=== PATIENT | female | born 1980 | race Caucasian/White ===

== ENCOUNTER 2024-11-03 07:50 | Outpatient (CLI) | payer OTHER, SELFPAY ==
--- NOTE | ~2024-11-03 | US_ITS ---
EXAMINATION: US right upper quadrant DATE: 11/03/2024 08:16 INDICATION: Elevated liver enzymes TECHNIQUE: Multiple grayscale and Doppler ultrasound images of the abdomen were obtained. COMPARISON: None FINDINGS: The pancreatic head and body are normal in appearance. The pancreatic tail is not visualized. Liver has normal contour, with a smooth surface. There is increased parenchymal echogenicity and coarsened echotexture consistent with diffuse hepatic steatosis. No liver lesion identified. No intrahepatic b iliary duct dilation suspected. Portal venous flow was seen in the hepatopetal, normal direction and has normal Doppler waveform. The aorta and inferior vena cava are normal. The gallbladder is normal i n appearance. There is no cholelithiasis. The common bile duct measures 3 mm, which is normal. Sonog raphic Kuo sign was reported as negative by the area field manager. Right kidney measures 11.5 cm in marjan th and demonstrates normal contour and echogenicity with no hydronephrosis. IMPRESSION: 1. Diffuse hepatic steatosis. Reviewed, dictated and finalized at location A. [facility] ROOM TEACHER
== END 2024-11-03 07:51 | disposition home or self-care (01) ==
PROVIDERS: PCP Internal Medicine; Visit Provider Internal Medicine
DX: R74.01 Elevation of levels of liver transaminase levels (principal); K76.0 Fatty (change of) liver, not elsewhere classified
CPT/HCPCS: 76705

== ENCOUNTER 2025-01-10 16:44 | Outpatient (CLI) | payer OTHER, SELFPAY ==
[2025-01-10 17:51] LABS: Anion Gap 9 mmol/L (4-12); Blood Urea Nitrogen 15 mg/dL (7-17); Calcium 9.6 mg/dL (8.4-10.2); Carbon Dioxide 30 mmol/L (22-30); Chloride 99 mmol/L (98-107); Estimated Glomerular Filt Rate > 60; Glucose 126 mg/dL (65-110); Potassium 4.2 mmol/L (3.4-5.0); Sodium 138 mmol/L (137-145)
--- OUTSIDE RECORDS SUMMARY | 2025-01-10 18:48 | XMS_ITS | Clinical Summary ---
Author Organization [facility] Address [address] [place] [id number] Care Team Providers Care Cardiology Rn Name Role Phone Unavailable Primary Care Provider Unavailabl e Social History Tobacco Use Types Packs/Day Years Used Date Smoking Tobacco: Never Assessed Comments Unknown Sex and Gender Information Value Date Recorded Sex Assigned at Not on file Legal Sex Female 7:22 AM CDT Gender Identity Not on file Sexual Orientation Not on file Plan of Treatment Health Maintenance Due Date Last Done Comments Cervical Cancer Screening Pa p Smear (Age 30 to 64) Every 3 Years 1982 Annual Physical 1985 Hepatitis C 2000 DTaP, Tdap and Td Vaccines ( 1 - Tdap) 2001 Hepatitis B Vaccines (1 of 3 - 19+ 3-dose series) 2001 Cervical Cancer Screening Pa p with HPV Testing (Age 30 to 64) Every 5 Years 2012 Cervical Cancer Screening with HPV 2012 Mammogram Screening 2022 COVID-19 Vaccine (2023-2 5 season) 2024 Influenza Adult (#1) 2024 HPV Vaccines Aged Out No longer eligi ble based on patient's age to complete this topic Meningococcal B Vaccine Aged Out No l onger eligible based on patient's age to complete this topic Meningococcal Vaccine Aged Out No alex kaur eligible based on patient's age to complete this topic Pneumococcal Vaccine: Pediat rics (0 to 5 Years) and At-Risk Patients (6 to 64 Years) Aged Out No longer eligible b ased on patient's age to complete this topic RSV Immunizations Under 20 Months Aged Out No longer eligible based on patient's age to complete this topic
--- OUTSIDE RECORDS SUMMARY | 2025-01-10 18:48 | XMS_ITS | Data Portability ---
Author Organization [place] [facility], Main Office Address [address] [place] [address] Care Team Providers Care Slurry Mixer Name Role Phone LAI HAMPTON Primary Care Provider AQUILES THOMAS General Surgeon Assessment Encounter Date Assessment Date Assessment LastModified by Organization Details LastModified Time 07/05/2024 07/05/2024 Skin lesion of R nipple lesion. Excision today. Tolerated well. Pathology pending. [email or web address] Not available 07/05/2024 11:16:27 10/24/2024 10/24/2024 07/05/2024: [facility], labs not reported till OV 10/24/2024 Chol 217, TG 172, LDL 129 Gluc 189, AST/ALT 33/44 HCT 47.9 VIT D 19L Not available 10/24/2024 11:21:19 11/23/2024 11/23/2024 07/05/2024: [facility], labs not reported till OV 10/24/2024 Chol 217, TG 172, LDL 129 Gluc 189, AST/ALT 33/44 HCT 47.9 VIT D 19L 11/07/2024: [facility]GT: 15N Hep panel: Neg A1C 8.3 VIT D 26 HCT 45.5 Gluc 199 TG 196l LDL 102 Not available 11/23/2024 14:33:31 Plan of Treatment Reminders Order Date Submit Date Provider Last Modified By Organization Details Last Modified Time Details Appointments Follow Up 15 2024 02:15P Thaddeus garza MD Not available Not available Not available Lab vitamin D, 25-hydrox y, total, serum 2024 025 [employer] [facility], [address] [place], [address], 11/24/2024 14:35:22 HbA1c (hemoglob in A1c), blood 2024 025 [email or web address] [facility], [facility] [place], [address], 01/05/2025 11:16:12 microalbu min, urine 2024 025 [email or web address] [facility], [facility] [place], [address], 01/05/2025 11:16:13 lipid panel, serum 2024 025 [employer] [facility], [address] [place] [address] [place], [address], 11/24/2024 14:35:22 CMP, serum or plasma 2024 025 [employer] [facility], [facility] [place], [address], 11/24/2024 14:35:22 CBC w/ auto diff 2024 025 [employer] [address] [place], [address], 11/24/2024 14:35:22 TSH + free T4, serum 2024 025 [email or web address] [facility], [facility] [place], [address], 01/05/2025 11:16:13 vitamin D, 25-hydrox y, total, serum 2023 024 VINICIO Not available 11/14/2024 15:45:36 HbA1c (hemoglob in A1c), blood 2023 024 VINICIO Not available 11/14/2024 15:45:37 microalbu min, urine 2023 024 [email or web address] Not available 11/25/2024 15:47:00 lipid panel, serum 2023 024 VINICIO Not available 11/14/2024 15:45:27 CMP, serum or plasma 2023 024 VINICIO Not available 11/14/2024 15:45:32 CBC w/ auto diff 2023 024 VINICIO Not available 11/14/2024 15:45:33 TSH + free T4, serum 2023 024 [email or web address] Not available 11/25/2024 15:47:00 gamma-glu tamyl transfera se (ggt), serum 2023 024 VINICIO Not available 11/14/2024 15:45:31 hepatitis panel (A+B+C), acute, serum 2023 024 VINICIO Not available 11/14/2024 15:45:30 lipid panel, serum 2023 024 [email or web address] Not available 08/25/2024 09:22:48 CMP, serum or plasma 2023 024 [email or web address] Not available 08/25/2024 09:22:59 TSH, serum or plasma 2023 024 VINICIO Not available 11/14/2024 15:45:35 CBC w/ auto diff 2023 024 [email or web address] Not available 08/25/2024 09:23:45 T4, free, serum 2023 024 VINICIO Not available 11/14/2024 15:45:34 vitamin D, 25-hydrox y, total, serum 2023 024 [email or web address] Not available 08/25/2024 09:22:38 Referral obstetric jennifer and gynecolog ist referral - Please call patient to schedule. 2024 025 [email or web address] Albina Montenegro MD, [address], [address], [place], [address], 11/23/2024 17:00:06 podiatris t referral - Please call patient to schedule. 2024 025 [email or web address] Darian German DPM, [address], [place], [address], 11/23/2024 17:00:06 hepatolog ist referral 2024 025 [email or web address] Dharmesh Lugo MD, [address] [place], [address], 11/23/2024 17:00:07 obstetric jennifer and gynecolog ist referral - Please call patient to schedule. 2023 024 LISA Montenegro MD, [address] [facility] [address], [place], [address], 10/24/2024 17:21:16 podiatris t referral - Please call patient to schedule. 2023 024 [email or web address] Darian German DPThaddeus, [address], [place], [address], 10/24/2024 17:11:01 obstetric jennifer and gynecolog ist referral 2023 024 [email or web address] Albina Montenegro MD, [address], [place], [address], 10/24/2024 17:03:17 general surgeon referral 2023 024 [email or web address] Aquiles Benítez MD, [address], [place], [address], 07/28/2024 15:25:47 Procedures None recorded. Surgeries None recorded. Imaging US, liver - Please call patient to schedule. 2023 024 [facility], [address], [place], [address], 11/03/2024 09:35:06 MAMMO, screening , bilateral 2023 024 VINICIO Not available 08/23/2024 10:38:16 Medication Orders cholecalc iferol (vitamin D3) 1,250 mcg (50,000 unit) capsule 2024 025 [id number], [address], [place], [address], 11/23/2024 14:34:56 metformin 500 mg tablet 2024 025 [id number], [address], [place], [address], 11/23/2024 14:34:56 lisinopri l 5 mg tablet 2024 025 [id number], [address], [place], [address], 11/23/2024 14:34:56 Lipitor 40 mg tablet 2024 025 [id number], [address], [place], [address], 11/23/2024 14:34:56 cholecalc iferol (vitamin D3) 1,250 mcg (50,000 unit) capsule 2023 024 [id number], [address], [place], [address], 10/24/2024 11:19:44 Patient TargetsNo targets recorded. Patient Instructions Encounter Date Encounter Id Patient Instructions Last Modified By Organization Details Last Modified Time 10/24/2024 [id number] diabetic eye exam* [email or web address] Not available 10/24/2024 11:17:49 11/23/2024 [id number] diabetic eye exam* [email or web address] Not available 11/23/2024 14:45:30 Reason for Referral Hardware Design Engineer And Gynecologis t Referral for Gynecologic examination Referring Physician: Lai Hampton Internal [facility], Encounter Date: 06/27/2024 General Surgeon Referral for Skin tag Referring Physician: Lai Hampton [facility], Encounter Date: 06/27/2024 Hardware Design Engineer And Gynecologis t Referral for Gynecologic examination Please call patient to schedule. Referring Physician: Lai Hampton Internal [facility], Encounter Date: 10/24/2024 Program Management Intern Referral for Type 2 diabetes mellitus without complication Please call patient to schedule. Referring Physician: Lai Hampton Internal Medicine, Encounter Date: 10/24/2024 Hardware Design Engineer And Gynecologis t Referral for Gynecologic examination Please call patient to schedule. Referring Physician: Lai Hampton Internal Medicine, Encounter Date: 11/23/2024 Program Management Intern Referral for Type 2 diabetes mellitus without complication Please call patient to schedule. Referring Physician: Lai Hampton Internal [facility], Encounter Date: 11/23/2024 Skin Carver Referral for Li renetta enzymes level above reference range Referring Physician: Lai Hampton Internal [facility], Encounter Date: 11/23/2024 Results Created Date Observation Date Name Description Value Unit Range Abnormal Flag Note LastModifiedBy Organization Detail LastModifiedTime 08/23/2008/23/2024 MAMMO , scree ilda, bilat eral No observ [facility]ion [facility] ed[facility] [address] , [place], [address], 08/23/2024 10:38:16 11/03/20 24 11/03/2024 US, liver No observ ation record ed. [facility] [address], [place], [address], 11/03/2024 09:35:06 Result Notes None recorded. Problems Name Problem SNOMED Code Status Onset Date Resolution Date Notes Provider Name and Address Organization Details Recorded Time Vitamin D deficiency 55099739 Active 2023 Lai garza MD [address], [place], [address], [facility] 4 10:46:40 Skin tag 282568617 Active 2023 Lai garza MD [address], [place], [address], [facility] 11:01:09 Skin lesion 70963120 Active 2023 Aquiles doss MD [address] [facility], [place], [address], [facility] 14:55:00 Hyperlipidemia 44139109 Active 2023 Lai garza MD [address], [place], [address], [facility] 11:15:47 Type 2 diabetes mellitus without complication 666453081 Active 2023 Lai garza MD [address], [place], [address], [facility] 11:15:56 Liver enzymes level above reference range 276957216 Active 2023 Lai garza MD [address], [place], [address], [facility] 11:16:19 Problem Notes None recorded. Procedures Surgical History Date Name Laterality Status Provider Name and Address Organization Details Recorded Time Excision Cyst Multilayer completed Aquiles kiser MD [address], [place], [address], [employer] 07/05/2024 11:16:15 Hip surgery completed MARIA E Galindo [facility] 11/23/2024 14:06:24 Imaging Results Imaging Date Name Status LastModified by Organiz ation Details LastModified Time 08/23/2024 MAMMO, screening, bilateral active VINICIO Marina [address] , [place], [address], 08/23/2024 10:38:16 11/03/2024 US, liver active [facility] [address], [place], [address], 11/03/2024 09:35:06 Procedure Notes None recorded. Medical Equipment None Reported. Allergies No known drug allergies Medications Name Sig Start Date Stop Date Status Note LastModified by Organization Details LastModified Time atorvastatin 40 mg tablet TAKE 1 TABLET BY MOUTH EVERY DAY active Not Available Not Available No t Available metformin 500 mg tablet TAKE 1 TABLET TWICE A DAY BY ORAL ROUTE FOR 90 DAYS. active Not Available Not Available No t Available lisinopril 5 mg tablet TAKE 1 TABLET BY MOUTH EVERY DAY active Not Available Not Available No t Available cholecalciferol (vitamin D3) 1,250 mcg (50,000 unit) capsule TAKE 1 CAPSULE BY MOUTH EVERY WEEK active Not Available Not Available No t Available Vitals Date Recorded Body height Body mass index (BMI) Body weight Body temperature Heart rate Oxygen saturation Oxygen saturation in Arterial blood by Pulse oximetry Systolic blood pressure Diastolic blood pressure Provider Name and Address Organization Details Last Updated DateTime 4 167.64 cm 47.5 kg/m2 739842. 16 g 98.7 [degF] 104 /min 98 % 98 % 158 mm[Hg] 88 mm[Hg] Anastacia Parr MA [facility] 4 10:42:39 Date Recorded Body height Body mass index (BMI) Body weight Heart rate Body temperature Respiratory rate Oxygen saturation Oxygen saturation in Arterial blood by Pulse oximetry Systolic blood pressure Diastolic blood pressure Provider Name and Address Organization Details Last Updated DateTime 4 167.64 cm 47.5 kg/m2 200551. 16 g 100 /min 97.6 [degF] 14 /min 98 % 98 % 120 mm[Hg] 76 mm[Hg] Kateryna Wiggins [employer] [facility] [employer] 4 10:25:26 Date Recorded Body height Body mass index (BMI) Body weight Body temperature Heart rate Systolic blood pressure Diastolic blood pressure Provider Name and Address Organization Details Last Updated DateTime 4 167.64 cm 45 kg/m2 528748. 27 g 97.8 [degF] 90 /min 146 mm[Hg] 90 mm[Hg] Susannah Li Kathy [facility] [employer] [facility] 4 10:43:45 Date Recorded Body height Body mass index (BMI) Body weight Body temperature Heart rate Systolic blood pressure Diastolic blood pressure Provider Name and Address Organization Details Last Updated DateTime 5 167.64 cm 45.2 kg/m2 384113. 86 g 97.6 [degF] 90 /min 156 mm[Hg] 98 mm[Hg] Susannah Li Kathy [facility] [employer] [facility] 5 14:08:40 Social History Question Answer Notes LastModified by Organizat ion Details LastModified Time Tobacco Smoking Status Never Smoker MARGARET Givens, [facility] [employer] [facility] [employer] [facility] 06/27/2024 10:37:48 Do You Have An Advance Directive? No Information not available 10/24/2024 What Is Your Level Of Alcohol Consumption? Occasional Information not available 06/27/2024 What Is Your Level Of Caffeine Consumption? Moderate Information not available 06/27/2024 In The 14 Days Before Symptom Onset, Have You Had Close Contact With A Laboratory-confi rmed COVID-19 While That Case Was Ill? No Information not available 06/27/2024 In The 14 Days Before Symptom Onset, Have You Had Close Contact With A Person Who Is Under Investigation For COVID-19 While That Person Was Ill? No Information not available 06/27/2024 Are You Currently Employed? Yes Information not available 06/27/2024 What Type Of Diet Are You Following? REGULAR Information not available 06/27/2024 What Is Your Occupation? [employer] Information not available 06/27/2024 Have There Been Any Changes To Your Family Or Social Situation? No Information not available 06/27/2024 Do You Use Insect Repellent Routinely? No Information not available 06/27/2024 Where Do You Live? Apartment Information not available 06/27/2024 Do You Have A Medical Power Of Hop Worker? No Information not available 10/24/2024 What Was The Date Of Your Most Recent Tobacco Screening? 11/23/2024 Information not available 11/23/2024 How Many Children Do You Have? 0 Information not available 06/27/2024 Do You Have Any Pets? No Information not available 06/27/2024 What Is Your Relationship Status? Single Information not available 06/27/2024 Do You Use Your Seat Belt Or Car Seat Routinely? Yes Information not available 06/27/2024 Do You Have Smoke And Carbon Monoxide Detectors In Your Home? Yes Information not available 06/27/2024 Are You Passively Exposed To Smoke? No Information not available 06/27/2024 Are There Any Smokers In Your House? No Information not available 06/27/2024 Do You Feel Stressed (tense, Restless, Nervous, Or Anxious, Or Unable To Sleep At Night)? [id number] Information not available 06/27/2024 Do You Use Any Illicit Or Recreational Drugs? Yes Occasional Ediable Information not available 06/27/2024 Do You Use Sunscreen Routinely? Yes Information not available 06/27/2024 Has Tobacco Cessation Counseling Been Provided? No N/a Information not available 10/24/2024 Have You Recently Traveled Abroad? No Information not available 10/24/2024 Have You Used IV Drugs? No Information not available 06/27/2024 Do You Have Any Dietary Restrictions? No Information not available 06/27/2024 Do You Or Have You Ever Used Any Other Forms Of Tobacco Or Nicotine? No Information not available 06/27/2024 Sex: Female Functional Status Question Answer Note LastModified by Organization D etails LastModified Time What is your exercise level? Moderate Information not available 06/27/2024 Mental Status None recorded. Family History Relationship Description Onset Age of this Age Resolved Age Notes LastModified by Organization Details LastModified Time Father Diabetes mellitus [email or web address] Not available 2023 10:36:48 Paternal Grandfather Diabetes mellitus [email or web address] Not available 2023 10:36:48 Medical History Condition Response OBESITY Y Gynecological History Statement/Question Response How many live births 0 Date of Last Pap Current Control Method None Date of Last Colonoscopy Date of Last Mammogram Date of LMP 06/16/2024 Obstetrics History GPAL:G 0 P 0 0 0 0 Type Value Multiple Births 0 Full Term 0 Induced 0 Spontaneous 0 Premature 0 Living 0 Ectopics 0 Total 0 Immunizations Vaccine Type Date Status Note Provider Nam e and Address Organization Details Recorded Time COVID-19, mRNA, LNP-S, PF, 30 mcg/0.3 mL dose 01/13/2021 completed Susannah Li RMA josé luis, [facility] 06/27/2024 10:56:00 COVID-19, mRNA, LNP-S, PF, 30 mcg/0.3 mL dose 02/03/2021 [facility] 06/27/2024 10:56:00 COVID-19, mRNA, LNP-S, PF, 30 mcg/0.3 mL dose 09/28/2021 completed Susannah Li RMA null, [facility] 06/27/2024 10:56:00 COVID-19, mRNA, LNP-S, bivalent, PF, 30 mcg/0.3 mL dose 07/28/2022 completed Susannah Li RMA null, [facility] 06/27/2024 10:56:00 COVID-19, mRNA, LNP-S, PF, fernanda-sucrose, 30 mcg/0.3 mL 08/24/2023 completed Susannah Li RMA null, [facility] 06/27/2024 10:56:00 Influenza, MDCK, trivalent, PF 08/02/2024 completed Susannah Li RMA null, [facility] 09/02/2024 12:45:48 COVID-19, mRNA, LNP-S, bivalent, PF, 30 mcg/0.3 mL dose 07/25/2024 completed MARIA E Galindo null, [place] [facility] [employer] [facility] 10/24/2024 10:35:21 Tdap 06/27/2024 completed Lai Hampton MD [address], [place], [address], [facility] [employer] [facility] 06/27/2024 14:16:09 Past Encounters Encounter ID Performer Location Encounter Start Date Encounter Closed Date Diagnosis/Indication Diagnosis SNOMED-CT Code Diagnosis ICD10 Code Diagnosis Note [id number] Lai copeland MD [facility] Internal Med Jaron yolanda [address] [place] [address] 06/27/2024 10:18:25 06/27/2024 11:05:18 Screening - NAD 118291986 Z13.9 Mammogram: Get this done PAP: Get this Get yearly flu shotUTD on Tdap 06/27/2024 Get COVID 19 vaccine and its boosters RTC in 3 months, do labs, ER if worse, she is very appreciati ve to this plan of care Hyperlipid emia screening 853144184 Z13.220 Vitamin D deficiency 347 14671 E55.9 Screening mammography 24 968249 Z12.31 Gynecologi c examination 41417215 Z01.419 Skin tag 544653477 L91.8 Skin tag noted on the R areolaWill refer to Dr Walker Administra tion of diphtheria, pertussis, and tetanus vaccine 891011363 Z23 [id number] Aquiles castanon MD [facility] [place] [address] [place] [address] 07/05/2024 09:40:14 07/05/2024 11:24:33 Skin lesion 84456861 L98.9 Right Nipple [id number] Lai copeland MD [facility] [place] [facility] [address] [place] [address] 10/24/2024 10:14:47 10/24/2024 11:19:19 Screening - NAD 383605584 Z13.9 Mammogram: 08/23/2024 : Neg PAP: Get this Get yearly flu shotUTD on Tdap 06/27/2024 Get COVID 19 vaccine and its boosters RTC in 1 months, do labs, ER if worse, she is very appreciati ve to this plan of care Vitamin D deficiency 347 80269 E55.9 Get on vit dRepeat the labs Gynecologi c examination 98659277 Z01.419 Skin tag 250051725 L91.8 Skin tag noted on the R areolaWill refer to Dr Walker OV 10/24/2024 :Dr Harrison 07/05/2024 , s/p bx 07/06/2024 Hyperlipidemia 85106843 E78.5 Not on any meds, will do labs Type 2 krista betes mellitus without complication 218566156 E11.9 Not on any medsWill repeat the labs Liver enzy mes level above reference range 083174504 R74.01 [id number] Lai copeland MD [facility] Primary Care [facility] [address] [place] [address] 11/23/2024 13:55:14 11/23/2024 14:37:08 Screening - NAD 194140861 Z13.9 Mammogram: 08/23/2024 : Neg PAP: Get this Get yearly flu shotUTD on Tdap 06/27/2024 Get COVID 19 vaccine and its boosters RTC in 3 months, do labs, ER if worse, she is very appreciati ve to this plan of care Vitamin D deficiency 347 62801 E55.9 Get on vit dRepeat the labs Gynecologi c examination 13721591 Z01.419 Skin tag 570266687 L91.8 Skin tag noted on the R areolaWill refer to Dr Walker OV 10/24/2024 :Dr Harrison 07/05/2024 , s/p bx 07/06/2024 OV 11/23/2024 : Does well now Hyperlipidemia 87554724 E78.5 Get on lipitor 40mg dailyMore diet and exercise is neededGet labs Type 2 krista betes mellitus without complication 603578212 E11.9 Start on metformin 500mg po bid, watch for low glucose symptoms, all side effects explained to herWill repeat the labs Liver enzy mes level above reference range 322821509 R74.01 US liver 11/03/2024 : Hepatic steatosisH ep panel/GGT: Neg 11/07/2024 Refer to GI Health Concerns Section Related Observation LastModified by Organization Detai ls LastModified Time None Recorded Concern Status LastModified by Organization Details LastModified Time None Recorded Advance Directives Directive N: Payers Encounter Date Sequence Insurance Name Policy Number Policy Schmitz Covered Member ID Schmitz Member ID Guarantor Name 06/27/2024 1 [employer] [id number] Elizabeth Adams [id number] Elizabeth Adams 07/05/2024 1 [employer] [id number] Elizabeth Adams [id number] 1 Elizabeth Adams 10/24/2024 1 [employer] [id number] Elizabeth Adams [id number] 1 Elizabeth Adams 11/23/2024 1 [employer] [id number] Elizabeth Adams [id number] lEizabeth Adams Notes Date Note Type Note Provider Name and Address Organization Details Recorded Time 06/27/2024 text/html OV 06/27/2024:He re to establish care Present Hx:R breast skin tag Here to get the skin tag on the R breast removed, it was irritated about 2 weeks ago when she slipped and fell on some sharp rocks while boating in [place], now tender, no D/c no swelling or redness Lia Hampton MD [address], [place], [address], [facility] [employer] [facility] 06/27/2024 14:17:08 07/05/2024 text/html Patient presents to clinic to discuss lesion of R nipple. States it has been there for > 1 year, unchanged. Recently, became irritated when it caught on clothing and has since been bothering her. No drainage. No nipple changes otherwise. No breast masses. WNL mammography. No constitutional symptoms. Aquiles Thomas MD [address], [place], [address], [employer] [facility] 07/05/2024 14:55:13 10/24/2024 text/html OV 06/27/2024:He re to establish care Present Hx:R breast skin tag Here to get the skin tag on the R breast removed, it was irritated about 2 weeks ago when she slipped and fell on some sharp rocks while boating in [place], now tender, no D/c no swelling or redness OV 10/24/2024: Here for her f/u apt, she feels well today, states that she did do the labs but these were not reported Lai Hampton MD [address], [place], [address], [facility] 10/24/2024 11:23:24 11/23/2024 text/html OV 06/27/2024:He re to establish care Present Hx:R breast skin tag Here to get the skin tag on the R breast removed, it was irritated about 2 weeks ago when she slipped and fell on some sharp rocks while boating in [place], now tender, no D/c no swelling or redness OV 10/24/2024: Here for her f/u apt, she feels well today, states that she did do the labs but these were not reported OV 11/23/2024: Here for her f/u apt, she is doing very well, she did do the labs on 11/07/2024 Lai Hampton MD [address], [place], [address], [facility] 11/23/2024 14:38:37 OBGyn Episode No OBEpisode recorded.
--- OUTSIDE RECORDS SUMMARY | 2025-01-10 18:48 | XMS_ITS | Clinical Summary ---
Author Organization [facility] Address [address] [place] [address] Care Team Providers Care Sr Community Manager Name Role Phone Zabrina Hampton MD Primary Care Provide r Medications multivit-forensic document examiner als-ferrous fum (MULTI VITAMIN) 9 mg iron/15 mL liquid once a day 0 0 3 Active cyanocobalamin (vitamin B-12) 50 mcg tablet once a day 0 0 3 Active aspirin 325 mg tablet take 1 tablet by oral route every day 0 0 3 Active ibuprofen (ADVIL) 100 mg tablet take 2 tablet by oral route every 4 - 6 hours as needed with food 0 0 3 Active calcium (CALCIO RUEL) 500 mg tablet 500 mg. 0 0 4 Active medroxyPROGEST ERone (DEPO-PROVERA) 150 mg/mL syringe inject 1 milliliter by intramuscular route every 3 months 1 Syringe 3 5 Active metroNIDAZOLE (FLAGYL) 500 mg tablet take 1 tablet by oral route every 12 hours until gone 14 0 5 Active Surgical History Surgery Date Site/Laterality Comments OTHER SURGICAL HISTORY 1993 Slipped capital femoral epiphysis: Hip surgery Medical History Medical History Date Comments Hx Other Medical Slipped capital femoral epiphysis Family History Medical History Relation Name Comments Diabetes Father Diabetes mellit us; Cause of : Diabetes mellitus Other Other 1 No family histo ry of Cancer, breast; Other Other 2 No family histo ry of Cancer, colon; Other Other 3 No family histo ry of Hypertension; Breast cancer Neg Hx Ovarian cancer Neg Hx Thyroid cancer Neg Hx Relation Name Status Comments Father (Age 54) Other 1 Other 2 Other 3 Social History Tobacco Use Types Packs/Day Years Used Date Smoking Tobacco: Former Alcohol Use Standard Drinks/Week Comments Yes 0 (1 standard drink = 0.6 oz pur e alcohol) Comments No Sex and Gender Information Value Date Recorded Sex Assigned at Not on file 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 Gender Identity Female 06/28/2024 7:39 AM CDT Sexual Orientation Straight 06/28/2024 7: 39 AM CDT Obstetrics History Para Term AB IAB SAB Ectopic Multiple Livin g Live Births 0 0 0 0 0 0 0 0 0 0 0 Last Filed Vital Signs Vital Sign Reading Time Taken Comments Blood Pressure 140/92 10/08/2015 10:07 AM SILK CREPE MACHINE OPERATOR Pulse 108 2013 1:12 PM CDT Temperature - - Respiratory Rate - - Oxygen Saturation - - Inhaled Oxygen Concentration - - Weight 129.3 kg (285 lb) 08/23/2024 7:51 AM CDT Height 167.6 cm (5' 6 ) 08/23/2024 7:51 AM CDT Body Mass Index 46 08/23/2024 7:51 AM CDT Plan of Treatment Health Maintenance Due Date Last Done Comments Depression Screening 1982 Hepatitis C Screening 1982 Varicella Vaccines (1 of 2 - 13+ 2-dose series) 1995 Hepatitis B Screening 2000 Regular Well Visit/Exam 18-64 2000 Cervical Cancer Screening 2014 2013 Covid-19 Vaccine ( season) 2024 07/28/2022, 09/28/2021, 02/03/2021, Additional history exists Breast Cancer Screening-Mammogram 08/23/2025 08/23/2024, 07/22/2023 DTaP/Tdap/Td Vaccine (2 - Td or Tdap) 06/27/2034 06/27/2024 Influenza Vaccine Completed 08/02/2024 HPV Vaccines Aged Out No longer eligi ble based on patient's age to complete this topic Pneumococcal vaccine <65 Aged Out No longer eligible based on patient's age to complete this topic Procedures Procedure Name Priority Date/Time Associated Diagnosis Comments SCREENING MAMMOGRAM BILATERAL W WILLIE Schedule Routine, Read Routine (OP Routine) 08/23/2024 7:56 AM CDT Screening mammogram, encounter for THINPAP, REFLEX HPV ALL PTH Routine 2013 11:53 AM CDT from Last 3 Months or Most Recently Relevant to Health Maintenance Results * Screening Mammogram Bilateral W Willie (08/23/2024 7:56 AM CDT) Anatomical Region Laterality Modality Breast Bilateral Mammography 08/23/2024 9:25 AM CDT Impressions 08/23/2024 9:25 AM CDT No evidence of malignancy in either breast. FINAL ASSESSMENT: BI-RADS Category 1: Negative. RECOMMENDATION: Recommend return for annual screening mammogram in 12 months. Electronically signed by: Matilde Mata M.D. Narrative 08/23/2024 9:25 AM CDT EXAMINATION: BILATERAL SCREENING MAMMOGRAM COMPARISON: 07/22/2023 TECHNIQUE: Full-field 2D and digital breast tomosynthesis (DBT) images were obtained. CAD was utilized. BREAST PARENCHYMAL COMPOSITION: There are scattered areas of fibroglandular density. FINDINGS: There is no suspicious mass, calcification, or distortion in either breast. us Self Screening Mammogram IMG MAMMO PROCEDURES Fi nal Result * ThinPrep Pap, Reflex HPV all pth (2013 11:53 AM CDT) SOURCE: SEE NOTE [facility] HISTORICAL RESULTS Comment:Cervix, Endocervix CLINICAL INFORMATION: SEE NOTE [facility] HISTORICAL RESULTS Comment:7 or more years sinc e last Pap LMP SEE NOTE [facility] HISTORICAL RESULTS Comment:08/26/13 Previous Pap SEE NOTE [facility] HISTORICAL RESULTS Comment:Information not prov ided Prev. Bx SEE NOTE [facility] HISTORICAL RESULTS Comment:Information not prov ided Pap, specimen adequacy SEE NOTE [facility] HISTORICAL RESULTS Comment: Satisfactory for evaluation. Endocervical/transformation zone component present. HPV interp SEE NOTE [facility] HISTORICAL RESULTS Comment:Negative for intraep ithelial lesion or malignancy. Lactobacillus species SEE NOTE [facility] HISTORICAL RESULTS Comment: This Pap test has been evaluated with computer assisted technology. Filter Press Pumper SEE NOTE [facility]ORICAL RESULTS Comment:MVB CT(ASCP) Review motel front desk clerk SEE NOTE [facility] HISTORICAL RESULTS Comment: SHER CT(ASCP) Test performed at [address] [address] Director: GARCIA POWERS DO, MPH Infection: SEE NOTE [facility] HISTORICAL RESULTS Comment: Shift in vaginal nisreen suggestive of bacterial vaginosis. 2013 11:5 3 AM CDT Jory Talavera MD LAB PATHOLOGY ORDERAB LES Final Result [facility] HISTORICAL RESULTS from Last 3 Months or Most Recently Relevant to Health Maintenance Insurance [facility] HMO/PPO Address: [facility] [id number] [place] [id number] [facility] Care Teams Sr Community Manager Relationship Specialty Start Date End Date Zabrina Hampton MD [address] [place] [address] PCP - General Internal Medicine 08/23/24
--- OUTSIDE RECORDS SUMMARY | 2025-01-10 18:48 | XMS_ITS | Referral Summary ---
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 Gender Identity Female 06/28/2024 7:39 AM CDT Sexual Orientation Straight 06/28/2024 7: 39 AM CDT Last Filed Vital Signs Vital Sign Reading Time Taken Comments Blood Pressure 140/92 10/08/2015 10:07 AM BENEFIT DIRECTOR Pulse 108 2013 1:12 PM CDT Temperature - - Respiratory Rate - - Oxygen Saturation - - Inhaled Oxygen Concentration - - Weight 129.3 kg (285 lb) 08/23/2024 7:51 AM CDT Height 167.6 cm (5' 6 ) 08/23/2024 7:51 AM CDT Body Mass Index 46 08/23/2024 7:51 AM CDT Plan of Treatment Not on file Procedures Procedure Name Priority Date/Time Associated Diagnosis [...] has been evaluated with computer assisted technology. Retouching Operator SEE NOTE [facility] HISTORICAL RESULTS Comment:MVB, CT(ASCP) Review tafe teacher SEE NOTE [facility] HISTORICAL RESULTS Comment: SHER, CT(ASCP) Test performed at [facility] [address] Director: GARCIA POWERS DO, MPH Infection: SEE NOTE [facility] HISTORICAL RESULTS Comment: Shift in vaginal nisreen suggestive of bacterial vaginosis. 2013 11:5 3 AM CDT Jory Talavera MD LAB PATHOLOGY ORDERAB LES Final Result Performing Organization Address City/State/[facility] Co de Phone Number [facility] HISTORICAL RESULTS from Last 3 Months or Most Recently Relevant to Health Maintenance Insurance AETNA [facility] Member Subscriber Plan / Payer (Ef fective 2017-Present) Name:Elizabeth Adams Relation to Subscriber:Self Name:Elizabeth Adams Payer ID:[id number] ([facility]) Type:AETNA HMO/PPO Address: [facility] [id number] [place] [address] Care Teams Protective Signal Repairer Relationship Specialty Start Date End Date Zabrina Hampton MD [address] [place] [id number] PCP - General Internal Medicine 08/23/24
--- OUTSIDE RECORDS SUMMARY | 2025-01-10 18:48 | XMS_ITS | Clinical Summary ---
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 Gender Identity Not on file Sexual Orientation Not on file Plan of Treatment Health Maintenance Due Date Last Done Comments Hepatitis C Virus (HCV) Screening 1982 TdaP Immunization 1982 Hepatitis B Immunization (1 of 3 - 19+ 3-dose series) 2001 Pap Smear 2003 Cervical Cancer Screening (CCS) 2012 HPV/Cotest 2012 Discussion re Starting/Frequ ency of Mammograms 2022 Influenza Immunization (#1) 2024 SARS-COV-2 Immunization ( season) 2024 Respiratory Syncytial Virus (RSV) Immunization (Adult) (1 - 1-dose 75+ series) 2057 Meningococcal Immunization (ACWY) Aged Out No longer eligible based on patient's age to complete this topic Pneumococcal Immunization Combined Aged Out No longer eligible based on patient's age to complete this topic Rotavirus Immunization Aged Out No lo nger eligible based on patient's age to complete this topic Insurance AET[employer] [place]
== END 2025-01-10 16:45 | disposition home or self-care (01) ==
LOC: ANHLAB 16:45
PROVIDERS: PCP Internal Medicine; Visit Provider Anesthesiology
DX: N93.9 Abnormal uterine and vaginal bleeding, unspecified (principal)
CPT/HCPCS: 36415; 80048

== ENCOUNTER 2025-01-16 01:32 | Day surgery (SDC) | payer OTHER, SELFPAY ==
[2025-01-04 15:33] VITALS: BMI 44.1
--- NOTE | 2025-01-04 15:40 | PC.NURSE ---
Report to the Outpatient Waiting Room, entrance under the green pavilion located off [facility], at time 0700_ on date 01/16/25_. Planned Procedure Time: __0900 .? Time changes happen often and if your time is changed the preop area will call you the afternoon before. - You and your visitor will be asked to self-screen and do not enter if you have any COVID symptoms. Please call surgeon if you need to reschedule. - A mask is optional within the hospital at this time. Patients may have clear liquids (water, carbonated beverages, clear teas, apple juice) until 3 hours prior to surgery with a maximum of 20 ounces. - No food from midnight until time of surgery and no smoking, or chewing tobacco (or any form of nicotine). No chewing gum, candy or mints. - Infants may have breast milk until 4 hours before surgery, infant formula 6 hours prior to surgery. - Children will be allowed to drink immediately following surgery.? If applicable, please bring a bottle or sippy cup to assist with drinking. Juice, water, soda, and popsicles are readily available.? For infants on formula, please bring formula the day of surgery.? Pacifiers are allowed. Take only the following medications with a SIP of water on the morning of surgery: NONE DO NOT STOP ANY OF YOUR OTHER PRESCRIPTION MEDICATIONS PRIOR TO SURGERY EXCEPT THE FOLLOWING Hold all vitamins and supplements for 3 days per anesthesiologist. Medications to discontinue per physician Date to take last dose Please no make-up, nail yi, hairspray, perfume, deodorant, or body powder the day of surgery.? No jewelry (including any body piercings) or valuables the day of surgery, leave them at home.? Please take a shower or bath the night before, or the morning of, surgery with an antibacterial soap.? Wear comfortable, loose fitting clothing.? Children are encouraged to wear pajamas. - Jewelry must be removed prior to entering the operating room.? Rings and piercings that are not removed may be cut off. - The hospital will not accept responsibility for valuables.? - Please leave all valuables, including medications, at home the day of surgery. If you are going home after surgery, a licensed driver merchandiser must drive you home.? - NO public transportation without another adult if you receive anesthesia. - We recommend that an adult stay with you for 24 hours following discharge. - We also recommend that you do not drive, make important decision, drink alcoholic beverages, or take any drugs that were not prescribed by your health care provider for at least 24 hours after your discharge time. For Pediatric surgeries, we recommend two adults accompany the child home. Follow any additional instructions given to you from your surgeon. Telephone instructions given to PATIENT__and asked if any additional questions and then verbalized understanding. Patient advised to call surgeon office or pre surgery nurse liaison [phone] if any additional questions.
--- NOTE | 2025-01-15 19:27 | PM.IMHP ---
H&P: HPI History of Present Illness Date/Time: 01/15/25 19:27 Chief Complaint: AUB Narrative: Elizabeth is a 44yo G0, who presents for for surgical management of AUB. She reports that her cycles are still very regular; every now and then has a heavy one, but they have actually gotten shorted (now last 4-6days, not 7-9). For the last year, she has noticed some BTB mid cycle though; would say it's about 1-2 day of adoption agent spotting; has happened about 6 out 12 months. She is sexually active; partner has vasectomy. She denies any breast issues; mammo normal 08/2024. She reports a normal h/o pap (had one mildly abnormal many years ago, but normal since); last pap about 2020-2021ish. She denies any vaginal issues. No pelvic pain outside of cycle; has not back pains here and there. On exam, she was found to have a large endocervical polyp. RUBBER COVERING MACHINE OPERATOR US showed a lining of 1cm, but on exam, the endocervical polyp was also measuring 1x1cm. Review of Systems Constitutional: Constitutional: Denies chills, Denies fever(s) and Denies headache(s) Eyes: Eyes: Denies change in vision ENT: Denies dizziness and Denies headache(s) Cardiovascular: Cardiovascular: Denies chest pain and Denies dyspnea Respiratory: Respiratory: Denies cough and Denies dyspnea Gastrointestinal: Gastrointestinal: Denies abdominal pain and Denies change in stool character Genitourinary: Genitourinary: Reports abnormal menses, Denies pelvic pain, Denies vaginal discharge, Denies vaginal odor and Denies vaginal pruritus Neurologic: Denies dizziness and Denies headache(s) Psychiatric: Psychiatric: Denies anxiety and Denies depression [facility] Past Medical History Medical History (Updated 12/13/24 @ 10:07 by Albina Montenegro MD) Hypertension Hyperlipidemia Diabetes Surgical History Surgical History History of hip surgery 1993 Family History Family History Father Diabetes mellitus Grandparent Diabetes mellitus maternal grandfather Social History Social History (Updated 01/28/25 @ 09:28 by KATE Kelly Smoking status: Former smoker Alcohol intake: current Drinks per week: 5 Alcohol use details: socially Substance use: current Substance use type: marijuana Other substance usage details: CBD GUMMY OCCASIONALLY Last use: occasional gummy Do You Feel Safe in your Home?: Yes Lack of Transportation: No Lack of Food: Never True Current Housing: I Have Housing Concerned About Future Housing: No Difficulty Paying Gas/Electric Bills: No Difficulty Paying for Meds: No Currently Unemployed: No Education: Bachelor's Degree Difficulty w/ Childcare or Family Care: No Living arrangements: alone Occupation/Education: occupation 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[employer] Gender identity (if verbalized by the patient): Female Sexual Orientation (if Verbalized by the Patient): Straight or Heterosexual Meds Home Medications and Allergies Home Medications ?Medication ?Instructions ?Recorded ?Confirmed ?Type atorvastatin 40 mg tablet (Lipitor) 40 mg PO DAILY 12/12/24 01/04/25 History lisinopril 5 mg tablet 5 mg PO DAILY 12/12/24 01/04/25 History metformin 500 mg tablet 500 mg PO BID 12/12/24 01/04/25 History efrnotpfprzw-Cs-zpar-minerals 18 1 tablet PO DAILY 12/12/24 01/04/25 History mg-0.4 mg tablet omega-3 360 nn-nrl-rgy-fish 1 cap PO DAILY 12/12/24 01/04/25 History oil-vitamin D3 12.5 mcg capsule cholecalciferol (vitamin D3) 125 50,000 unit PO WEEKLY 01/04/25 01/04/25 History mcg (5,000 unit) tablet (Vitamin D3) Allergies Allergy/AdvReac Type Severity Reaction Status Date / Time No Known Allergies Allergy Verified 01/04/25 15:30 Exam Const: General: cooperative, comfortable, no acute distress and obese Orientation/consciousness: patient oriented x3 Resp: Effort & Inspection: normal respiratory effort Cardio: Rate: regular rate GI: Inspection: normal to inspection GI Palp: No abdominal tenderness and Yes Soft to palpation : Other: deferred to OR Skin: General skin exam: normal color Neuro: General: patient oriented x3 Extrem: General: normal to inspection Psych: Appearance: grossly normal Affect: normal affect Attitude: cooperative Assessment and Plan Assessment and plan (1) Abnormal uterine bleeding (AUB): Code(s): N93.9 - Abnormal uterine and vaginal bleeding, unspecified Status: Acute (2) Endocervical polyp: Code(s): N84.1 - Polyp of cervix uteri Status: Acute Plan - Proceed with hysteroscopy, D&C, and polypectomy - risks and benefits discussed in detail
[2025-01-16 06:55] VITALS: BP 163/87; PULSE 104; RESP 20; TEMP 36.6; O2SAT 100
--- NOTE | 2025-01-16 06:59 | WPDHPUPDATE1 ---
History and Physical Update Update Date/Time: 01/16/25 06:59 History and Physical has been reviewed, including an updated exam of the patient. There are NO changes in the patient's condition. Risks, benefits, and alternatives have been discussed and questions answered. Patient agrees to proceed with hysteroscopy, D&C, and polypectomy.
[2025-01-16 07:06] LABS: BEDSIDEPREGUCG Negative (Negative)
[2025-01-16] MEDS: LACTATED RINGERS 1,000 ML 30 ML IV CONT (07:25)
[2025-01-16] MEDS: ACETAMINOPHEN 500 MG TABLET 1000 MG PO (07:30)
[2025-01-16 07:37] LABS: Glucose Point of Care 144 mg/dl (65-105)
--- NOTE | 2025-01-16 07:42 | WPDANESEPPF ---
Anes - Initial Pre Proc Eval Procedure: Operation Date: 01/16/25 09:00 Proposed Procedures p Hysteroscopy Dilation and Curettage - Albina Montenegro MD Date/Time: 01/16/25 07:42 Surgeon: Albina Montenegro MD Pre Op Diagnosis: abnormal uterine bleeding Patient Data Age: 44 Gender: F Height: 1.68 m Weight: 126.7 kg Last Vital Signs Temp 36.6 C 01/16/25 06:55 Pulse 104 H 01/16/25 06:55 Resp 20 01/16/25 06:55 BP 163/87 H 01/16/25 06:55 Pulse Ox 100 01/16/25 06:55 O2 Del Method Room Air 01/16/25 06:55 Allergies Allergy/AdvReac Type Severity Reaction Status Date / Time No Known Allergies Allergy Verified 01/04/25 15:30 Home Medications ?Medication ?Instructions ?Recorded ?Confirmed ?Type atorvastatin 40 mg tablet (Lipitor) 40 mg PO DAILY 12/12/24 01/16/25 History lisinopril 5 mg tablet 5 mg PO DAILY 12/12/24 01/16/25 History metformin 500 mg tablet 500 mg PO BID 12/12/24 01/16/25 History bcznajsozizg-Mp-elqy-minerals 18 1 tablet PO DAILY 12/12/24 01/16/25 History mg-0.4 mg tablet omega-3 360 ah-yoy-xem-fish 1 cap PO DAILY 12/12/24 01/16/25 History oil-vitamin D3 12.5 mcg capsule cholecalciferol (vitamin D3) 125 50,000 unit PO WEEKLY 01/04/25 01/16/25 History mcg (5,000 unit) tablet (Vitamin D3) acetaminophen 500 mg tablet 1,000 mg (2 x 500 mg) PO TID #60 01/16/25 Rx tabs ibuprofen 800 mg tablet 800 mg PO TID #30 tabs 01/16/25 Rx Laboratory Tests 01/16/25 01/16/25 07:04 07:27 POC Capillary Glucose 144 H mg/dl (65-105) POC Urine HCG, Qual Negative (Negative) Patient hx anesthesia problems: none Family hx anesthesia problems: none Results Review: All pre-operative results and documents have been reviewed as part of the pre-operative evaluation. [facility] Past Medical History Medical History (Updated 01/16/25 @ 07:42 by Lan Hu MD) Morbid obesity Hypertension Hyperlipidemia Diabetes Surgical History Surgical History History of hip surgery 1993 Family History Family History Father Diabetes mellitus Grandparent Diabetes mellitus maternal grandfather Social History Social History Smoking status: Never smoker Alcohol intake: current Drinks per week: 5 Alcohol use details: socially Substance use: current Substance use type: marijuana Other substance usage details: CBD GUMMY OCCASIONALLY Last use: occasional gummy Do You Feel Safe in your Home?: Yes Lack of Transportation: No Lack of Food: Never True Current Housing: I Have Housing Concerned About Future Housing: No Difficulty Paying Gas/Electric Bills: No Difficulty Paying for Meds: No Currently Unemployed: No Education: Bachelor's Degree Difficulty w/ Childcare or Family Care: No Living arrangements: alone Occupation/Education: occupation 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[employer] Gender identity (if verbalized by the patient): Female Sexual Orientation (if Verbalized by the Patient): Straight or Heterosexual Anes - Eval Final PreProcedure Day of Procedure 01/16/25 07:42 Patient weight: morbidly obese Heart: regular rate and rhythm Lungs: clear to auscultation Airway: Mallampati scale class II Neurological: alert and oriented Last oral intake: >/= 8 hours ASA classification: III Emergent: no Anesthetic plan: proceed Anesthesia type and monitoring: general GIVS and standard monitoring Results Review: All pre-operative results and documents have been reviewed as part of the pre-operative evaluation. Informed Consent: The patient's anesthetic plan and its attendant risks and benefits were discussed with the patient/family/POA. Questions were solicited and answers provided to the satisfaction of the patient/family/POA.
--- NOTE | 2025-01-16 09:36 | W.PM.PROC2 ---
Procedure Note - Detailed Date of Procedure 01/16/25 Pre-op Diagnosis abnormal uterine bleeding Post-op Diagnosis Same Procedure Performed Hysteroscopy, D&C, and polypectomy Surgeon Albina Montenegro MD Anesthesia MAC Findings 1x1cm polyp protruding from the cervix; but attached within the cervix (4x1cm in length after removal). Uterus sounded to 9.5cm. Diffusely thickened endometrium throughout the uterine cavity. Bilateral tubal ostia visualized. Good hemostasis at end of case. Fluid deficit: 10cc Description of Procedure Elizabeth was taken to the operating room where she was placed under sedation without complications. She was then prepped and draped in the usual sterile fashion in the dorsal lithotomy position with her legs in low Ray stirrups. A time-out was performed and no perioperative antibiotics were indicated. A bivalve speculum was placed within the vagina where the cervix was easily identified. The anterior lip of the cervix was grasped with a single-tooth tenaculum. The cervix was then serially dilated to allow for the hysteroscope. The hysteroscope was advanced into the uterine cavity with the above findings noted. Using a ring forceps, the endocervical polyp was grasped and twisted on its stalk until it was released. A curettage was then performed until a good uterine cry was felt throughout the uterus. The hysteroscope was advanced back into the cervix/uterus and the polyp was removed in whole and the lining was noted to be thin. Good hemostasis was noted. All instruments were removed from the vagina. Sponge, lap, instrument, and needle counts were correct at the end of the procedure. Patient was awoken from anesthesia and taken to recovery with plans of same-day discharge home. Estimated Blood Loss 10 IV Fluids 800 Packing No Pathology Yes (Endocervical polyp and endometrial curettings) Complications No immediate complications Condition Stable Disposition Same day [facility] Billing Surgery - Charge Forward: Surgery Billing
[2025-01-16 09:42] VITALS: BP 127/79; PULSE 83; RESP 14; O2SAT 97
[2025-01-16 09:48] LABS: Glucose Point of Care 196 mg/dl (65-105)
[2025-01-16 10:12] VITALS: BP 128/76; PULSE 69
== END 2025-01-16 10:43 | disposition home or self-care (01) ==
PROVIDERS: PCP Internal Medicine; Visit Provider Obstetrics & Gynecology
PROC: 0U5B8ZZ Destruction of Endometrium, Via Natural or Artificial Opening Endoscopic (ICD-10-PCS; CPT 58563; principal; 2025-01-16 09:00)
DX: N93.9 Abnormal uterine and vaginal bleeding, unspecified (principal); N84.1 Polyp of cervix uteri; N84.0 Polyp of corpus uteri; E11.9 Type 2 diabetes mellitus without complications; E66.01 Morbid (severe) obesity due to excess calories; Z68.42 Body mass index [BMI] 45.0-49.9, adult
CPT/HCPCS: 58558; 82948; 88305; A9270; J2250; J2704; J3010; J7120